=== PATIENT | male | born 1960 | race Hispanic/Latino ===

== ENCOUNTER 2018-12-06 05:49 | Day surgery (SDC) | payer OTHER ==
[~2018-12-06 05:49] MED LIST: VANCOMYCIN 1,500 MG in NACL 0.9% 500 ML 500 ML IV SCH; VANCOMYCIN/NS 1 GM/250 ML 1 GM/250 ML BAG IV NR
[2018-12-06] MEDS ORDERED: SUBLIMAZE IV ONE (06:00)
[2018-12-06] MEDS ORDERED: LACTATED RINGERS 1,000 ML IV SCH (06:00)
[2018-12-06] MEDS ORDERED: NEURONTIN PO NR (06:00)
[2018-12-06] MEDS ORDERED: NACL BACTERIOSTATIC INFILTRATI ONE (06:10)
[2018-12-06] MEDS ORDERED: MARCAINE-EPI 0.5%-1:200,000 INFILTRATI ONE (06:36)
[2018-12-06] MEDS ORDERED: XYLOCAINE 1% 20 mL ONE (06:37)
[2018-12-06] MEDS: VERSED IV NR ×2 (06:43→07:09)
--- NOTE | 2018-12-06 07:03 | Anesthesia Consultation ---
Anesthesia Consult and Med Hx Date of service: 12/06/18 - Airway Anesthetic Teeth Evaluation: Good Mallampati Class: Class II Intubation Access Assessment: Possibly Difficult - Pulmonary Exam CTA: Yes - Cardiac Exam Cardiac Exam: RRR - Pre-Operative Health Status ASA Pre-Surgery Classification: ASA2 Proposed Anesthetic Plan: General Nerve Block: interscalene - Pre-Anesthesia Comment Pre-Anesthesia Comments: Pt is S/P cervical fusion. 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 Neck extension is normal. - Pulmonary Hx Smoking: No Hx Sleep Apnea: No (NAN PRE SCREEN LOW RISK) - Cardiovascular System Hx Hypertension: No - Other Systems Hx Alcohol Use: Yes (2-3 DRINKS PER DAY) Hx Cancer: No
[2018-12-06] MEDS ORDERED: NORCO 5/325 PO PRN (07:04)
[2018-12-06] MEDS ORDERED: ZOFRAN ODT PO PRN (07:04)
[2018-12-06] MEDS ORDERED: DILAUDID IV PRN (07:04)
--- NOTE | 2018-12-06 07:04 | Anesthesia Day of Surgery ---
Anesthesia Day of Surgery - Day of Surgery Patient Examined: Yes Patient H&P Reviewed: Yes Patient is NPO: Yes
[2018-12-06] MEDS ORDERED: DIPRIVAN 10 MG/ML IV ONE (07:16)
[2018-12-06] MEDS ORDERED: SUBLIMAZE ONE (07:16)
[2018-12-06] MEDS ORDERED: XYLOCAINE MPF 2% ONE (07:23)
[2018-12-06] MEDS ORDERED: QUELICIN ONE (07:23)
[2018-12-06] MEDS ORDERED: DECADRON ONE (07:23)
[2018-12-06] MEDS ORDERED: ZOFRAN ONE (07:24)
[2018-12-06] MEDS ORDERED: ADRENALIN IV ONE ×2 (07:40→07:44)
[2018-12-06] MEDS ORDERED: ADRENALINE P/F ONE ×2 (07:52→07:58)
[2018-12-06] MEDS ORDERED: ADRENALINE P/F IV ONE (08:50)
[2018-12-06] MEDS ORDERED: NACL 0.9% IR ONE (08:50)
--- NOTE | 2018-12-06 10:25 | Short Stay Summary ---
Short Stay Documentation Date of service: 12/06/18 - History H&P: obtained from office - Allergies and Medications Current Medications: Allergies Cephalosporins Allergy (Verified 12/01/18 12:53) Shortness of Breath latex Allergy (Verified 12/01/18 12:53) Rash Sulfa (Sulfonamide Antibiotics) Allergy (Verified 12/01/18 12:53) Rash hydrocodone Adverse Reaction (Intermediate, Verified 12/06/18 07:15) Itching NAUSEA Home Medications Medication Instructions Recorded Confirmed Last Taken Type Valacyclovir HCl [Valtrex] 1,000 mg PO DAILY 12/01/18 12/06/18 12/04/18 History Active Medications Celecoxib (Celebrex) 200 mg PO PREOP NR Stop: 12/06/18 23:59 Last Admin: 12/06/18 06:21 Dose: 200 mg Documented by: Gabapentin (Neurontin) 300 mg PO PREOP NR Stop: 12/06/18 23:59 Last Admin: 12/06/18 06:21 Dose: 300 mg Documented by: Hydromorphone HCl (Dilaudid) 0.5 mg IV Q10MIN PRN PRN Reason: Pain , Severe (7-10) Stop: 12/06/18 16:00 Vancomycin HCl 1,500 mg/ (Sodium Chloride) 530 mls @ 333.333 mls/hr IV PREOP BALJINDER Stop: 12/06/18 23:59 Last Admin: 12/06/18 07:05 Dose: 333.333 mls/hr Documented by: Lactated Ringer's (Lactated Ringers) 1,000 mls @ 100 mls/hr IV DIRECT BALJINDER Last Admin: 12/06/18 06:20 Dose: 100 mls/hr Documented by: Midazolam HCl (Versed) 2 mg IV PREOP NR Stop: 12/06/18 23:59 Last Admin: 12/06/18 07:09 Dose: 2 mg Documented by: Ondansetron HCl (Zofran Odt) 4 mg PO ONCE PRN PRN Reason: Nausea And Vomiting Stop: 12/06/18 12:00 - Brief post op/procedure progress note Date of procedure: 12/06/18 Pre-op diagnosis: persistent left shoulder pain, AC joint arthritis, labral tear, partial rot Post-op diagnosis: other (left shoulder anterior/superior labral tear, AC joint arthritis, partial rotator cuff tear, extensive subacromial bursitis) Procedure: left shoulder arthroscopy subacromial decompression, distal clavicle excision, debridement of extensive subacromial bursitis, debridement of partial rotator cuff tear, arthroscopic repair anterior/superior labrum Anesthesia: GETA Findings: as above Surgeon: VALENTINA RAMON Estimated blood loss: minimal Pathology: none Condition: stable - Hospital course Hospital course: no perioperative complications - Disposition Condition at discharge: Good Disposition: DC-01 TO HOME OR SELFCARE Short Stay Discharge Plan Follow up with: ALEX CHANCE [Other] - 7 Days
[2018-12-06] MEDS ORDERED: DILAUDID PO ONE (11:24)
[2018-12-06] MEDS ORDERED: DILAUDID PO PRN (11:26)
--- NOTE | 2018-12-06 11:29 | Post Anesthesia Evaluation ---
- Post Anesthesia Evaluation Patient Participated: Yes Airway Patent: Yes Stable Respiratory Function: Yes Nausea/Vomiting: No Temp > 96.8F: Yes Pain Manageable: Yes Adequeate Hydration: Yes Anesthesia Complications: No Block Receding Appropriately: Yes Other Comments: Patient complained of operative pain despite pre-op block. Reported intolerance to PO oxycodone and hydrocodone. Surgeon has written Rx for dilaudid PO 4mg. PO dilaudid ordered prn for PACU analgesia.
--- NOTE | 2018-12-06 12:18 | Operative Report ---
PREOPERATIVE DIAGNOSES: Persistent left shoulder pain, acromioclavicular joint arthritis, tear of the anterior superior labrum, partial thickness rotator cuff tear. POSTOPERATIVE DIAGNOSES: Persistent left shoulder pain, advanced acromioclavicular joint arthritic change with inferior spurs causing severe impingement upon the rotator cuff, partial thickness articular-sided rotator cuff tear involving approximately 10% of the width of the supraspinatus tendon, tearing at the junction of the anterior and superior labrum, extensive subacromial bursitis. OPERATIVE PROCEDURE: Left shoulder arthroscopy, subacromial decompression, distal clavicle excision, debridement of extensive subacromial bursitis, debridement of partial thickness rotator cuff tear, arthroscopic repair of the anterior/superior labrum. SURGEON: Paul Rolle MD. CYCLE SPECIALIST: None. ANESTHESIA: General plus an interscalene block to the operative left upper extremity. PREOPERATIVE ANTIBIOTICS: Vancomycin 1 gram IV within 1 hour of skin incision. DVT PROPHYLAXIS: Open toe, thigh high compression stockings and SCD pumps to bilateral lower extremities. OPERATIVE INSTRUMENTATION: 1. Bioabsorbable corkscrew anchor with corresponding 2. Cobraid suture for fixation of the anterior superior labral tear. OPERATIVE COMPLICATIONS: None. OPERATIVE HISTORY AND PHYSICAL: This is a 58-year-old male, who has had persistent progressive worsening left shoulder pain. The pain is markedly limiting his day-to-day activities and has failed to improve despite extensive nonoperative treatment. MRI scan was performed, which was positive for advanced acromioclavicular joint arthritic changes and tear of the anterior superior labrum as well as marked rotator cuff tendinosis. The patient's MRI findings and diagnosis were discussed at length. After making sure the patient understood that diagnosis. All the questions were answered, we then discussed treatment alternatives of surgical and nonsurgical including risks and benefits of both. After a long lengthy discussion, the patient opted to proceed with operative intervention. This will entail a left shoulder arthroscopy, subacromial decompression, distal clavicle excision, repair of the anterior superior labrum, possible rotator cuff repair and surgery as indicated. The risks of which were discussed to include but not exclusive of infection, blood loss, nerve damage, loss of range of motion, persistent pain. Again, the patient understood, all the questions were answered and wished to proceed with operative intervention. OPERATIVE PROCEDURE: The patient was seen in the preoperative holding room area at which point informed consent was reviewed and appropriate left upper extremity was identified and then marked. The patient was then brought back to the operating room and placed supine on a standard operating room table with a beach chair positioner already in place. At this juncture, general anesthesia was administered and an endotracheal tube was inserted. After confirmation of appropriate general anesthesia and checking appropriate placement of the endotracheal tube, we then made sure that all bony prominences were well padded. We made sure that there were no wrinkles in the compression stockings on bilateral lower extremities and SCD pumps were applied to bilateral lower extremities. The well right arm was placed in a neutral position on the patient's side with the aid of the well arm briceño and then the patient was then sat up in the beachchair position using the beach chair position, which was already in place, making sure the hip was secured in a nice neutral position. We again double checked. All bony prominences were well padded. A pillow was placed beneath the posterior aspect of bilateral thigh was placed in slight flexion at the hips and knees, making sure the popliteal fossa was free and clear. The left upper extremity was then examined under anesthesia. The patient was seen to have full range of motion without any gross evidence of instability. Upon the examination under anesthesia the left upper extremity was then prepped and draped in the usual sterile fashion. After prepping and draping, a timeout was called and the appropriate left upper extremity was identified, which again had been marked in the preoperative holding room area begin a procedure by first making a standard posterior portal with #15 blade. Once the portal was established, the cannula with the blunt trocar was inserted into the intra-articular aspect of the glenohumeral joint. This went without difficulty or damage to articular cartilage. Once in place, arthroscopic camera was then placed in the anterior aspect of the shoulder joint, which demonstrated an anterior portal by first inserting an 18-inch spinal needle under direct arthroscopic visualization between the subscap and biceps tendons Once in place, the 15-blade was then used to establish the anteromedial portal. Once the portals were established a blunt trocar was inserted to widen the portal site. Following that, arthroscopic probe, we began a diagnostic arthroscopy in the anterior aspect of the shoulder joint. The patient was seen to have normal subscapularis tendon normal middle glenohumeral ligament. There was a tear at the junction of the anterior and superior labrum. The anterior inferior labrum; however, was intact. The bicep anchor was intact and the biceps tendon itself was excellent. The shoulder was in normal relation. There was normal articular cartilage of the glenohumeral joint. There was a normal bare area without a Hill-Sachs lesion. The posterior labrum was seen to be intact and stable when probed. Inspection of the rotator cuff to be partial thickness tearing of the supraspinatus tendon complex approximately 10% of the width of the tendon. This was gently debrided using 4.0 meniscal shaver. We then debrided the scar tissue surrounding the tear of the anterior and superior labrum approximately 3-4 mm of articular cartilage was removed from the glenoid in preparation for repairing the anterior superior labral tear. Through a combination of usage of several rasps plus the 4.0 meniscal shaver, we were able to debride the scar tissue from the neck of the anterior glenoid rim. Once completed, we used caspari suture passer with a 2-0 Prolene to pass a suture in the appropriate position in the anterior superior labral tear and once passed #2-0 Cobraid suture was then placed through the loop and then that suture was then pulled into the intra-articular aspect of the shoulder. Once this was completed with usage of a clear cord screw cannula we drilled the glenoid in standard fashion and once drilled, tapped in bioabsorbable corkscrew anchor using this to anatomically repair the anterior superior labrum back onto the anterior glenoid surface. Once anatomically repaired, we saw a good excellent stability with a negative drive-through sign. The arm was placed through a full range of motion again confirming good excellent stability of the repair, the bicep continued. Next the shoulder was in its normal relation. Once completed, the arthroscopic pump was turned off to make sure there was good hemostasis. Once this was confirmed, the extraneous fluid was suctioned from the glenohumeral joint using arthroscopic cannula. Once completed, the arthroscopic camera was then placed in the subacromial space. Once in the subacromial space, we saw the patient had severe extensive subacromial bursitis. A third incision was made in the lateral aspect of the shoulder lateral distal clavicle from axillary nerve. Once this incision was made we debrided the extensive subacromial bursitis using 4.0 meniscal shaver and hemostasis was achieved with the Arthrocare ablation wand. Once completed, the arm was placed through range of motion. We saw there was severe impingement of the rotator cuff on the undersurface of the acromion and the distal clavicle. The soft tissue was removed from the undersurface of the acromion using the Arthrocare ablation wand and using the 4.0 hooded barrel bur to carry subacromial decompression in standard fashion from inferior to superior, posterior to anterior make sure not to leave any residual anterior hook. We turned our attention to the distal clavicle. It also seemed to be arthritic and using a 4.0 hooded barrel bur, we carried out a distal clavicle excision to a depth of approximately 6-8 mm. Once this was completed, the arm was again placed through full range of motion under direct arthroscopic visualization, so there was no further impingement with rotator cuff undersurface of the acromion or the distal clavicle. Once this was complete, we turned our attention to the bursal side of the rotator cuff, which was inspected thoroughly. We saw there was no tearing on the bursal side of the rotator cuff. Arthroscopic pump was then turned off to make sure there was good hemostasis. Once this was confirmed, the syringe bulb suctioned from the subacromial space using arthroscopic cannula. Following this, arthroscopic instrumentation was removed. The 3 portal sites were closed with 3-0 nylon in simple fashion. Adaptic, 4 x 4, ABD, Medipore dressing and the small abduction sling was applied. The patient was then sat down from the beach chair into the supine position and was awakened from general anesthesia without complications to the recovery room in stable condition. Standard postoperative orders were written. JOB# [id number] KRISTINA/ADRIANNA
[2018-12-06 12:26] VITALS: BP 129/79
== END 2018-12-06 12:55 | disposition home or self-care (01) ==
LOC: OR 05:49
PROVIDERS: ATTEND Orthopaedic Surgery
DX: M75.102 Unspecified rotator cuff tear or rupture of left shoulder, not specified as traumatic (principal); M19.012 Primary osteoarthritis, left shoulder; M75.42 Impingement syndrome of left shoulder; S43.492A Other sprain of left shoulder joint, initial encounter; M75.52 Bursitis of left shoulder; E78.00 Pure hypercholesterolemia, unspecified; Z72.89 Other problems related to lifestyle; Z98.890 Other specified postprocedural states; Z88.2 Allergy status to sulfonamides; Z88.8 Allergy status to other drugs, medicaments and biological substances; Z91.040 Latex allergy status; Z79.899 Other long term (current) drug therapy; X58.XXXA Exposure to other specified factors, initial encounter; Y93.89 Activity, other specified; Y92.89 Other specified places as the place of occurrence of the external cause; Y99.8 Other external cause status
CPT/HCPCS: 29806; 29822; 29824; 29826; A4217; C1713; J0153; J0171; J0330; J1100; J1170; J2250; J2405; J2704; J3010; J3370; J7040; J7120; L1830